=== PATIENT | female | born 1960 | race Caucasian/White ===

== ENCOUNTER 2019-06-27 19:43 | Emergency (ER) | payer BC, OTHER ==
[~2019-06-27] VITALS: Ht 162.6 cm; Wt 62.5 kg
[2019-06-27] MEDS ORDERED: ondansetron/PF 4mg/2ml inj IV ONE (21:20)
[2019-06-27] MEDS ORDERED: morphine 4 MG/ML inj SYRINge IV ONE (21:20)
[2019-06-27] MEDS ORDERED: etomidate 2mg/ml inj. IV ONE ×2 (22:10→22:30)
[2019-06-27] MEDS ORDERED: HYDR-4384 PO (22:41)
--- NOTE | 2019-06-27 23:18 | NUR ---
pt amanda ice chips well, no n/v, pt has ride home with family
[2019-06-27 23:36] VITALS: BP 145/70
[2019-07-02] MEDS ORDERED: HYDR-3968 PO (17:20)
== END 2019-06-27 23:39 | disposition home or self-care (01) ==
LOC: ER 19:44
DX: S52.591A Other fractures of lower end of right radius, initial encounter for closed fracture (principal); S52.611A Displaced fracture of right ulna styloid process, initial encounter for closed fracture; Z79.899 Other long term (current) drug therapy; W18.39XA Other fall on same level, initial encounter; Y93.41 Activity, dancing; Y92.89 Other specified places as the place of occurrence of the external cause; Y99.8 Other external cause status
CPT/HCPCS: 25605; 73090; 73100; 96374; 96375; 99152; 99285; J2270; J2405

== ENCOUNTER 2019-07-03 11:58 | Day surgery (SDC) | payer BC, OTHER ==
[~2019-07-03] VITALS: Ht 162.6 cm; Wt 67.1 kg
[2019-07-03] VITALS (8 sets, daily range): BP systolic 146–174; BP diastolic 83–107
[~2019-07-03 11:58] MED LIST: HYDR-3968 PO; ceFAZolin 1GM/D5W- ADD-VANTAGE 50 ML IV ONE; famotidine 20mg tablet PO ONE; ringers solution, lacted 1,000 ML IV SCH
[2019-07-03 13:20] LABS: BASOPHILS % (AUTO) 0.5 % (0-1); EOSINOPHILS % (AUTO) 0.8 % (0-6); LYMPHOCYTES % (AUTO) 32.8 % (21-51); MEAN CORPUSCULAR HGB CONC 33.7 g/dL (33.0-36.5); MEAN CORPUSCULAR VOLUME 88.9 FL (78-98); MEAN PLATELET VOLUME 7.8 FL (7.4-10.4); MONOCYTES # (AUTO) 0.5 X10'3 (0-0.9); MONOCYTES % (AUTO) 9.2 % (2-12); NEUTROPHILS # (AUTO) 3.4 X10'3 (1.8-7.7); NEUTROPHILS % (AUTO) 56.7 % (42-75); PRE OP HEMOGLOBIN 13.8 g/dL (12.0-16.0); PRE OP PLATELET COUNT 214 X10'3 (140-440); RED BLOOD COUNT 4.61 X10'6 (4.20-5.60); RED CELL DISTRIBUTION WIDTH 12.5 % (11.5-14.5)
[2019-07-03 13:25] LABS: ALBUMIN/GLOBULIN RATIO 1.1 (1.1-1.5); ALKALINE PHOSPHATASE 73 IU/L (46-116); BLOOD UREA NITROGEN 19 MG/DL (7-18); BUN/CREATININE RATIO 24.4 (6.6-38.0); CALCIUM 8.9 MG/DL (8.5-10.1); CHLORIDE 103 MMOL/L (99-107); CREATININE 0.78 MG/DL (0.40-0.90); PRE OP ALT 23 U/L (30-65); PRE OP ANION GAP 7 (8-16); PRE OP AST 22 U/L (10-37); PRE OP BILIRUB, TOTAL 0.4 MG/DL (0.0-1.0); PRE OP GLUCOSE 86 MG/DL (70-104); PRE OP POTASSIUM 3.5 MMOL/L (3.4-5.1); PRE OP SODIUM 140 MMOL/L (135-145); TOTAL CARBON DIOXIDE 29.8 MMOL/L (24-32); TOTAL PROTEIN 7.6 G/DL (6.4-8.2); eGFR 76 ML/MIN
[2019-07-03] MEDS ORDERED: BUPIVAcaine/PF 2.5mg/ml (0.25%) 10ml vial ONE (14:37)
[2019-07-03] MEDS ORDERED: ringers solution, lacted 1,000 ML IV SCH (15:04)
[2019-07-03] MEDS ORDERED: proCHLORperazine 10 MG/2 ml inj IV PRN (15:05)
[2019-07-03] MEDS ORDERED: ondansetron/PF 4mg/2ml inj IV PRN (15:05)
[2019-07-03] MEDS ORDERED: meperidine/PF 25mg/ml syringe IV PRN ×3 (15:05)
[2019-07-03] MEDS ORDERED: morphine 4 MG/ML inj SYRINge IV PRN ×2 (15:05)
[2019-07-03] MEDS ORDERED: ROPIVAcaine 0.5% (5mg/ml) 30ml vial ONE (15:29)
[2019-07-03] MEDS ORDERED: MIDAZolam 5mg/5ml vial ONE (15:30)
[2019-07-03] MEDS ORDERED: fentaNYL/PF 50MCG/1 ML 2ML syringe ONE (15:30)
[2019-07-03] MEDS ORDERED: sevoflurane 250ml liquid IH ONE (15:31)
[2019-07-03] MEDS ORDERED: ondansetron/PF 4mg/2ml inj ONE (16:32)
[2019-07-03] MEDS ORDERED: dexamethasone sod phosphate 4mg/ml inj. ONE (16:32)
[2019-07-03] MEDS ORDERED: propofol inj 20 ML IV ONE (16:32)
[2019-07-03] MEDS ORDERED: HYDROcodone/acetaminophen 10/325mg tab PO ONE (18:05)
--- NOTE | 2019-07-03 18:19 | NUR ---
ALL DC CRITERIA HAS BEEN MET. IV TAKEN OUT WITHOUT COMPLICATIONS. ALL INSTRUCTIONS COVERED AND ALL QUESTIONS ANSWERED. DRESSINGS CDI. OUT VIA WHEELCHAIR TO PERSONAL VEHICLE WHERE PATIENT WAS SECURED IN AND DRIVEN HOME BY FAMILY. FRIEND PRESENT TO DRIVE PATIENT HOME AND HEAR DC INSTRUCTIONS. PATIENT GIVEN ONE NORCO 40 MINS PRIOR TO DC HOME. ENCOURAGED TO ELEVATE WRIST ABOVE ELBOW AND ELBOW ABOVE HEART ONCE SHE GETS HOME- AND TO WIGGLE FINGERS. VSS. PATIENT DRESSING WITH ASSIST FROM FRIEND. Addendum: 07/03/19 at 1842 by Rui Gomes RN, RN Amended: Links added.
== END 2019-07-03 18:19 | disposition home or self-care (01) ==
LOC: PAS 11:58
PROVIDERS: ATTEND Orthopaedic Surgery Hand Surgery
DX: S52.571A Other intraarticular fracture of lower end of right radius, initial encounter for closed fracture (principal); S52.601A Unspecified fracture of lower end of right ulna, initial encounter for closed fracture; J45.909 Unspecified asthma, uncomplicated; Z98.890 Other specified postprocedural states; Z98.51 Tubal ligation status; Z79.82 Long term (current) use of aspirin; X58.XXXA Exposure to other specified factors, initial encounter; Y99.8 Other external cause status; Y93.89 Activity, other specified; Y92.89 Other specified places as the place of occurrence of the external cause; G89.18 Other acute postprocedural pain; Z79.899 Other long term (current) drug therapy
CPT/HCPCS: 25609; 25652; 36415; 64417; 80053; 85025; C1713; J0690; J1100; J2175; J2250; J2270; J2405; J2704; J3010; J3490; J7120; A4215; A4565; A4618; A6449; A7000; J2795